=== PATIENT | male | born 1940 | race Caucasian/White ===

== ENCOUNTER → 2022-10-23 | Outpatient (REF) | payer MEDICARE, OTHER, SELFPAY ==
[2022-10-23 10:38] LABS: Hematocrit 33.8 % (40-54); Hemoglobin 11.5 g/dL (13.0-16.5); Mean Corpuscular Hgb 32.3 pg (27.0-32.0); Mean Corpuscular Volume 94.9 fL (80-94); Mean Platelet Vol. 10.1 fl (6.2-12.0); Platelet Count 238 K/mm3 (150-450); RBC Distribution Width CV 13.8 % (11.6-14.6); RBC Distribution Width SD 48.8 fl (35.1-43.9); Red Blood Count 3.56 M/mm3 (4.6-6.2); White Blood Count 8.5 K/mm3 (4.4-11.0)
[2022-10-23 10:57] LABS: Hemoglobin A1c 5.5 % (3.8-5.6)
[2022-10-23 11:00] LABS: ALB/GLOB Ratio 0.7 RATIO (0.9-2.4); AST(SGOT) 26 U/L (15-37); Alanine Aminotransfer ALT/SGPT 16 U/L (16-61); Albumin, Serum 2.6 g/dL (3.2-5.0); Alkaline Phosphatase 136 U/L (45-117); Anion Gap 8 (5-15); BUN 20 mg/dL (7-18); BUN/Creat Ratio 19.2 RATIO (10-20); Calcium,Total 8.4 mg/dL (8.5-10.1); Chloride 97 mmol/L (98-107); Cholesterol 73 mg/dL (200); Creatinine, Serum 1.04 mg/dL (0.70-1.30); EST Glomerular Filtration Rate 72 mL/min (>60); Est Glom Filt Rate - Afr Amer 87 mL/min (>60); Globulin 3.6 g/dL (2.2-4.2); Glucose 73 mg/dL (74-106); High Density Lipoprotein 40 mg/dL; Potassium 3.6 mmol/L (3.5-5.1); Protein, Total 6.2 g/dL (6.4-8.2); Sodium Level 133 mmol/L (136-145); Triglycerides 57 mg/dL; Very Low Density Lipoprotein 11 mg/dL (5-40)
== END ==
LOC: OLS.ACH 04:00
PROVIDERS: Visit Provider Family Medicine
DX: U07.1 COVID-19 (principal); E11.42 Type 2 diabetes mellitus with diabetic polyneuropathy; E78.5 Hyperlipidemia, unspecified; K80.20 Calculus of gallbladder without cholecystitis without obstruction
CPT/HCPCS: 36415; 80053; 80061; 83036; 85027

== ENCOUNTER → 2022-11-29 | Outpatient (REF) | payer MEDICARE, SELFPAY ==
[2022-11-29 20:45] LABS: Hematocrit 39.5 % (40-54); Hemoglobin 13.1 g/dL (13.0-16.5); Mean Corp Hgb Conc 33.2 g/dL (32-36); Mean Corpuscular Hgb 31.4 pg (27.0-32.0); Mean Corpuscular Volume 94.7 fL (80-94); Mean Platelet Vol. 10.4 fl (6.2-12.0); Platelet Count 263 K/mm3 (150-450); RBC Distribution Width CV 14.1 % (11.6-14.6); Red Blood Count 4.17 M/mm3 (4.6-6.2); White Blood Count 5.3 K/mm3 (4.4-11.0)
[2022-11-29 21:10] LABS: ALB/GLOB Ratio 0.7 RATIO (0.9-2.4); AST(SGOT) 48 U/L (15-37); Alanine Aminotransfer ALT/SGPT 38 U/L (16-61); Albumin, Serum 2.8 g/dL (3.2-5.0); Alkaline Phosphatase 216 U/L (45-117); Anion Gap 12 (5-15); BUN 43 mg/dL (7-18); BUN/Creat Ratio 35.2 RATIO (10-20); Calcium,Total 8.1 mg/dL (8.5-10.1); Chloride 97 mmol/L (98-107); Creatinine, Serum 1.22 mg/dL (0.70-1.30); EST Glomerular Filtration Rate 60 mL/min (>60); Est Glom Filt Rate - Afr Amer 73 mL/min (>60); Globulin 3.8 g/dL (2.2-4.2); Glucose 86 mg/dL (74-106); Potassium 3.7 mmol/L (3.5-5.1); Protein, Total 6.6 g/dL (6.4-8.2); Sodium Level 134 mmol/L (136-145)
== END ==
LOC: OLS.ACH 20:00
PROVIDERS: Visit Provider Internal Medicine
DX: K80.46 Calculus of bile duct with acute and chronic cholecystitis without obstruction (principal); R19.7 Diarrhea, unspecified; R11.10 Vomiting, unspecified
CPT/HCPCS: 36415; 80053; 85027

== ENCOUNTER → 2023-01-21 | Outpatient (REF) | payer MEDICARE, OTHER, MEDICAID, SELFPAY | LOC: OLS.ACH 16:10 | PROVIDERS: Visit Provider Internal Medicine | DX: R05.9 Cough, unspecified (principal); R09.81 Nasal congestion | CPT/HCPCS: 87633; 87635; U0003; U0005 ==

== ENCOUNTER → 2023-07-26 | Outpatient (REF) | payer MEDICARE, SELFPAY ==
[2023-07-26 08:14] LABS: Hematocrit 35.4 % (40-54); Hemoglobin 11.9 g/dL (13.0-16.5); Mean Corp Hgb Conc 33.6 g/dL (32-36); Mean Corpuscular Hgb 32.6 pg (27.0-32.0); Mean Platelet Vol. 10.9 fl (6.2-12.0); Platelet Count 136 K/mm3 (150-450); RBC Distribution Width CV 12.5 % (11.6-14.6); RBC Distribution Width SD 44.4 fl (35.1-43.9); Red Blood Count 3.65 M/mm3 (4.6-6.2); White Blood Count 7.2 K/mm3 (4.4-11.0)
[2023-07-26 08:27] LABS: Anion Gap 7 (5-15); BUN 39 mg/dL (7-18); BUN/Creat Ratio 27.5 RATIO (10-20); Calcium,Total 7.9 mg/dL (8.5-10.1); Chloride 106 mmol/L (98-107); Creatinine, Serum 1.42 mg/dL (0.70-1.30); EST Glomerular Filtration Rate 50 mL/min (>60); Est Glom Filt Rate - Afr Amer 61 mL/min (>60); Glucose 96 mg/dL (74-106); Potassium 4.3 mmol/L (3.5-5.1); Sodium Level 138 mmol/L (136-145)
== END ==
LOC: OLS.ACH 05:00
PROVIDERS: Visit Provider Internal Medicine
DX: I74.9 Embolism and thrombosis of unspecified artery (principal)
CPT/HCPCS: 36415; 80048; 85027

== ENCOUNTER → 2023-08-05 | Outpatient (REF) | payer MEDICARE, SELFPAY ==
[2023-08-05 09:44] LABS: Anion Gap 8 (5-15); BUN 41 mg/dL (7-18); BUN/Creat Ratio 31.5 RATIO (10-20); Calcium,Total 8.5 mg/dL (8.5-10.1); Chloride 104 mmol/L (98-107); EST Glomerular Filtration Rate 56 mL/min (>60); Est Glom Filt Rate - Afr Amer 67 mL/min (>60); Glucose 90 mg/dL (74-106); Sodium Level 136 mmol/L (136-145)
== END ==
LOC: OLS.ACH 04:00
PROVIDERS: Referring Provider Internal Medicine; Visit Provider Internal Medicine
DX: I12.9 Hypertensive chronic kidney disease with stage 1 through stage 4 chronic kidney disease, or unspecified chronic kidney disease (principal); N18.9 Chronic kidney disease, unspecified
CPT/HCPCS: 36415; 80048

== ENCOUNTER → 2023-09-06 | Outpatient (REF) | payer MEDICARE, SELFPAY ==
[2023-09-06 08:32] LABS: ALB/GLOB Ratio 1.2 RATIO (0.9-2.4); AST(SGOT) 40 U/L (15-37); Alanine Aminotransfer ALT/SGPT 25 U/L (16-61); Albumin, Serum 3.4 g/dL (3.2-5.0); Alkaline Phosphatase 137 U/L (45-117); Anion Gap 5 (5-15); BUN 43 mg/dL (7-18); BUN/Creat Ratio 28.3 RATIO (10-20); Calcium,Total 7.8 mg/dL (8.5-10.1); Chloride 103 mmol/L (98-107); Creatinine, Serum 1.52 mg/dL (0.70-1.30); EST Glomerular Filtration Rate 47 mL/min (>60); Est Glom Filt Rate - Afr Amer 56 mL/min (>60); Globulin 2.9 g/dL (2.2-4.2); Glucose 86 mg/dL (74-106); Protein, Total 6.3 g/dL (6.4-8.2); Sodium Level 136 mmol/L (136-145)
== END ==
LOC: OLS.ACH 05:00
PROVIDERS: Visit Provider Internal Medicine
DX: I12.9 Hypertensive chronic kidney disease with stage 1 through stage 4 chronic kidney disease, or unspecified chronic kidney disease (principal); N18.9 Chronic kidney disease, unspecified
CPT/HCPCS: 36415; 80053

== ENCOUNTER → 2023-11-04 | Outpatient (REF) | payer MEDICARE, SELFPAY ==
[2023-11-04 10:13] LABS: Absolute Lymphocyte Count 1.16 X10^3/uL (0.83-4.51); Absolute Neutrophil Count 3.1 X10^3/uL (2.0-7.7); Basophil# 0.02 X10^3/uL; Basophil% 0.4 % (0-1); Eosinophil# 0.13 X10^3/uL; Eosinophils% 2.6 % (0-5); Hematocrit 37.4 % (40-54); Hemoglobin 12.3 g/dL (13.0-16.5); Lymphocyte # 1.16 X10^3/ul (0.83-4.51); Lymphocyte % 22.9 % (19-41); Mean Corp Hgb Conc 32.9 g/dL (32-36); Mean Corpuscular Volume 97.4 fL (80-94); Mean Platelet Vol. 10.8 fl (6.2-12.0); Monocyte% 11.9 % (0-10); NRBC Flagged by Analyzer 0 % (0-5); Neutrophil # 3.14 X10^3/uL (2.7-7.7); Platelet Count 122 K/mm3 (150-450); RBC Distribution Width CV 12.9 % (11.6-14.6); RBC Distribution Width SD 45.6 fl (35.1-43.9); Red Blood Count 3.84 M/mm3 (4.6-6.2); White Blood Count 5.1 K/mm3 (4.4-11.0)
[2023-11-04 10:35] LABS: AST(SGOT) 52 U/L (15-37); Alanine Aminotransfer ALT/SGPT 23 U/L (16-61); Albumin, Serum 3.2 g/dL (3.2-5.0); Alkaline Phosphatase 166 U/L (45-117); Anion Gap 7 (5-15); BUN 42 mg/dL (7-18); BUN/Creat Ratio 27.8 RATIO (10-20); Calcium,Total 7.2 mg/dL (8.5-10.1); Chloride 105 mmol/L (98-107); Creatinine, Serum 1.51 mg/dL (0.70-1.30); EST Glomerular Filtration Rate 47 mL/min (>60); Est Glom Filt Rate - Afr Amer 57 mL/min (>60); Globulin 3.1 g/dL (2.2-4.2); Glucose 92 mg/dL (74-106); Potassium 3.7 mmol/L (3.5-5.1); Protein, Total 6.3 g/dL (6.4-8.2); Sodium Level 136 mmol/L (136-145)
== END ==
LOC: OLS.ACH 05:00
PROVIDERS: Visit Provider Internal Medicine
DX: J06.9 Acute upper respiratory infection, unspecified (principal); R06.2 Wheezing
CPT/HCPCS: 36415; 80053; 85025

== ENCOUNTER → 2024-02-12 | Outpatient (REF) | payer MEDICARE, SELFPAY ==
[2024-02-12 09:31] LABS: Hemoglobin A1c 5.7 % (3.8-5.6)
== END ==
LOC: OLS.ACH 05:00
PROVIDERS: Visit Provider Internal Medicine
DX: E11.42 Type 2 diabetes mellitus with diabetic polyneuropathy (principal); E11.22 Type 2 diabetes mellitus with diabetic chronic kidney disease; N18.9 Chronic kidney disease, unspecified
CPT/HCPCS: 36415; 83036

== ENCOUNTER → 2024-03-09 | Outpatient (REF) | payer MEDICARE, MEDICAID, SELFPAY ==
[2024-03-09 10:01] LABS: Hematocrit 40.8 % (40-54); Hemoglobin 13.6 g/dL (13.0-16.5); Mean Corp Hgb Conc 33.3 g/dL (32-36); Mean Corpuscular Hgb 32.3 pg (27.0-32.0); Mean Corpuscular Volume 96.9 fL (80-94); Platelet Count 154 K/mm3 (150-450); RBC Distribution Width CV 12.2 % (11.6-14.6); RBC Distribution Width SD 43.5 fl (35.1-43.9); Red Blood Count 4.21 M/mm3 (4.6-6.2); White Blood Count 7.1 K/mm3 (4.4-11.0)
[2024-03-09 10:31] LABS: ALB/GLOB Ratio 1.1 RATIO (0.9-2.4); AST(SGOT) 32 U/L (15-37); Alanine Aminotransfer ALT/SGPT 20 U/L (16-61); Albumin, Serum 3.5 g/dL (3.2-5.0); Alkaline Phosphatase 116 U/L (45-117); Anion Gap 7 (5-15); BUN 35 mg/dL (7-18); BUN/Creat Ratio 23.5 RATIO (10-20); Chloride 104 mmol/L (98-107); Creatinine, Serum 1.49 mg/dL (0.70-1.30); EST Glomerular Filtration Rate 48 mL/min (>60); Est Glom Filt Rate - Afr Amer 58 mL/min (>60); Globulin 3.1 g/dL (2.2-4.2); Glucose 160 mg/dL (74-106); Potassium 4.4 mmol/L (3.5-5.1); Protein, Total 6.6 g/dL (6.4-8.2); Sodium Level 136 mmol/L (136-145)
== END ==
LOC: OLS.ACH 05:00
PROVIDERS: Visit Provider Internal Medicine
DX: J06.9 Acute upper respiratory infection, unspecified (principal); B95.8 Unspecified staphylococcus as the cause of diseases classified elsewhere; R06.2 Wheezing
CPT/HCPCS: 36415; 80053; 85027

== ENCOUNTER → 2024-04-27 04:00 | Outpatient (REF) | payer MEDICARE, MEDICAID, SELFPAY | LOC: OLS.ACH 04:00 | PROVIDERS: Visit Provider Internal Medicine | DX: E11.51 Type 2 diabetes mellitus with diabetic peripheral angiopathy without gangrene (principal) | CPT/HCPCS: 36415; 83036 ==

== ENCOUNTER 2024-05-14 12:05 | Emergency (ER) | payer MEDICARE, MEDICAID, OTHER, SELFPAY ==
[2024-05-14] VITALS (10 sets, daily range): BP systolic 110–130; BP diastolic 56–66; PULSE 55–71; RESP 19–29; TEMP 36.3–37.3; O2SAT 95–98; BMI 28.8
--- NOTE | 2024-05-14 12:37 | EX.ED.DYSGE1 ---
HPI <HOLLY Franks - Last Filed: 05/14/24 16:24> History of Present Illness Chief Complaint: Shortness of Breath Narrative Narrative: Patient presenting today due to shortness of breath he has had over the past 2 days after being diagnosed with COVID. He is [facility] due to increased shortness of breath, productive cough, and wheezing. The facility placed him on supplemental O2 this morning, he is currently on 2.5 L O2 and oxygen saturation is 98%. He denies any fevers, chills, and chest pain. He has a PMH of CKD, COPD, T2DM, HLD, history of DVT on Eliquis. PFSH <HOLLY Franks - Last Filed: 05/14/24 16:24> PFSH Home Medications ?Medication ?Instructions ?Recorded ?Last Taken ?Type tamsulosin 0.4 mg capsule 0.8 mg (2 x 0.4 mg) PO QHS ##60 12/04/13 05/13/24 Rx acetaminophen 325 mg tablet 650 mg PO Q6H PRN pain 05/14/24 05/14/24 History albuterol 90 mcg-budesonide 80 2 inh inhalation 4X/DAY PRN 05/14/24 Unknown History mcg/actuation HFA aerosol inhaler shortness of breath (Airsupra) aluminum-mag hydroxide-simethicone 20 ml PO Q6H PRN indigestion 05/14/24 Unknown History 200 mg-200 mg-20 mg/5 mL oral susp (Advanced Antacid-Antigas) amlodipine 5 mg tablet 5 mg PO DAILY 05/14/24 05/14/24 History apixaban 5 mg tablet (Eliquis) 5 mg PO BID 05/14/24 05/14/24 History ascorbic acid (vitamin C) 500 mg 500 mg PO DAILY 05/14/24 05/13/24 History capsule aspirin 81 mg tablet,delayed 81 mg PO DAILY 05/14/24 05/14/24 History release benzocaine 15 mg-menthol 2.6 mg 1 lorraine mucous membrane Q2H PRN sore 05/14/24 05/13/24 History lozenges (Cepacol Sore Throat throat (benzocaine-menthol)) bisacodyl 10 mg rectal suppository 10 mg OK DAILY PRN constipation 05/14/24 Unknown History cholecalciferol (vitamin D3) 25 25 mcg PO DAILY 05/14/24 05/14/24 History mcg (1,000 unit) capsule finasteride 5 mg tablet 5 mg PO DAILY 05/14/24 05/14/24 History fluticasone propionate 44 2 puff inhalation BID 05/14/24 05/14/24 History mcg/actuation HFA aerosol inhaler furosemide 20 mg tablet 20 mg PO DAILY 05/14/24 05/14/24 History gabapentin 100 mg capsule 200 mg PO BID PAIN 05/14/24 05/14/24 History gabapentin 400 mg capsule 400 mg PO DAILY 05/14/24 05/13/24 History glucagon 1 mg solution for 1 mg IM Q20M PRN hypoglycemia 05/14/24 Unknown History injection (Glucagon Emergency Kit) labetalol 200 mg tablet 200 mg PO BID 05/14/24 05/14/24 History loperamide 2 mg tablet 2 mg PO Q8H PRN loose stool 05/14/24 Unknown History (Anti-Diarrheal (loperamide)) magnesium hydroxide 400 mg/5 mL 30 ml PO DAILY PRN constipation 05/14/24 Unknown History oral suspension (Milk of Magnesia) melatonin 3 mg tablet 3 mg PO QHS 05/14/24 05/13/24 History melatonin 5 mg tablet 5 mg PO QHS 05/14/24 05/13/24 History menthol 5 % topical gel (Biofreeze 1 ea topical Q12H PRN PAIN 05/14/24 04/28/24 History (menthol)) ondansetron HCl 4 mg tablet 4 mg PO Q8H PRN nausea and vomiting 05/14/24 Unknown History pantoprazole 20 mg tablet,delayed 20 mg PO DAILY 05/14/24 05/14/24 History release potassium chloride 10 mEq 10 meq PO BID 05/14/24 05/14/24 History tablet,extended release prednisone 20 mg tablet 20 mg PO BID 05/14/24 05/14/24 History sennosides 8.6 mg-docusate sodium 1 tab-cap PO DAILY PRN constipation 05/14/24 Unknown History 50 mg tablet (Laxative Stool Softener With Senna) sodium phosphates 19 gram-7 118 ml OK DAILY PRN constipation 05/14/24 Unknown History gram/118 mL enema (Enema) tramadol 50 mg tablet 50 mg PO BID PRN pain 05/14/24 05/14/24 History trazodone 50 mg tablet 25 mg PO QHS 05/14/24 05/13/24 History zinc sulfate 50 mg zinc (220 mg) 50 mg PO DAILY 05/14/24 05/14/24 History tablet Allergy/AdvReac Type Severity Reaction Status Date / Time Sulfa (Sulfonamide Allergy Severe edema Verified 05/14/24 12:05 Antibiotics) Social History Smoking Status: Never smoker ROS <HOLLY Franks - Last Filed: 05/14/24 16:24> ROS ED Constitutional Constitutional ED: Denies chills or fever(s) Cardiovascular Cardiovascular: Denies chest pain or palpitations Respiratory/Chest Respiratory/Chest: Reports cough, dyspnea and wheezing Gastrointestinal Gastrointestinal: Denies abdominal pain, nausea or vomiting Musculoskeletal Musculoskeletal: Denies arthralgias or myalgias Integumentary Denies rash Neurologic Neurologic: Denies weakness EXAM <HOLLY Franks - Last Filed: 05/14/24 16:24> Physical Exam Const Vital Signs: 05/14/24 12:05 05/14/24 12:13 05/14/24 12:24 Temperature 99.1 F 99.1 F Temperature Source Oral Oral Pulse Rate 67 66 Respiratory Rate 22 H 26 H Respiratory Effort Short of Breath Respiratory Pattern Tachypnea Blood Pressure 114/66 114/66 Blood Pressure Mean 82 82 Pulse Ox 97 98 Oxygen Delivery Method Nasal Cannula Nasal Cannula Nasal Cannula Oxygen Flow Rate (L/min) 3 3 3 05/14/24 12:39 05/14/24 12:39 05/14/24 13:11 Temperature 98.4 F Temperature Source Oral Pulse Rate 71 66 Respiratory Rate 20 H 29 H Respiratory Effort Respiratory Pattern Tachypnea Blood Pressure 113/63 Blood Pressure Mean 79 Pulse Ox 97 98 Oxygen Delivery Method Nasal Cannula Nasal Cannula Oxygen Flow Rate (L/min) 2 3 05/14/24 14:00 05/14/24 15:00 05/14/24 15:33 Temperature 98.5 F 97.3 F L Temperature Source Temporal Pulse Rate 62 56 L 63 Respiratory Rate 25 H 19 H 20 H Respiratory Effort Respiratory Pattern Blood Pressure 119/65 111/57 L 128/60 H Blood Pressure Mean 83 75 82 Pulse Ox 96 95 98 Oxygen Delivery Method Nasal Cannula Nasal Cannula Oxygen Flow Rate (L/min) 3 3 05/14/24 16:00 Temperature Temperature Source Pulse Rate 55 L Respiratory Rate 21 H Respiratory Effort Respiratory Pattern Blood Pressure 130/59 H Blood Pressure Mean 82 Pulse Ox 96 Oxygen Delivery Method Nasal Cannula Oxygen Flow Rate (L/min) 3 Positive well nourished, well developed and no apparent distress General Appearance ED: well developed HEENT Reports normocephalic and head/scalp atraumatic Mouth ED: Yes moist mucous membranes normal Eyes PERRL and EOMs intact bilaterally Neck full ROM and supple Chest Wall inspection of chest normal Resp normal respiratory effort and clear to auscultation bilaterally Resp Narrative: Minimal scattered inspiratory wheezes Cardio regular rate and regular rhythm GI soft to palpation, non-tender, non-distended and no masses Back/Spine normal ROM and normal to inspection Extremity normal to inspection and full ROM Neuro oriented x3, CN's II-XII intact bilaterally, moves all extremities, no focal motor deficits and no sensory deficits noted Sensorium / Orientation: awake and alert Psych mental status grossly normal and thought process normal Skin no rashes or lesions noted and no wounds <Dr. Ruben Sam, DO - Last Filed: 05/14/24 15:36> Physical Exam Const Vital Signs: 05/14/24 12:05 05/14/24 12:13 05/14/24 12:24 Temperature 99.1 F 99.1 F Temperature Source Oral Oral Pulse Rate 67 66 Respiratory Rate 22 H 26 H Respiratory Effort Short of Breath Respiratory Pattern Tachypnea Blood Pressure 114/66 114/66 Blood Pressure Mean 82 82 Pulse Ox 97 98 Oxygen Delivery Method Nasal Cannula Nasal Cannula Nasal Cannula Oxygen Flow Rate (L/min) 3 3 3 05/14/24 12:39 05/14/24 12:39 05/14/24 13:11 Temperature 98.4 F Temperature Source Oral Pulse Rate 71 66 Respiratory Rate 20 H 29 H Respiratory Effort Respiratory Pattern Tachypnea Blood Pressure 113/63 Blood Pressure Mean 79 Pulse Ox 97 98 Oxygen Delivery Method Nasal Cannula Nasal Cannula Oxygen Flow Rate (L/min) 2 3 05/14/24 14:00 05/14/24 15:00 05/14/24 15:33 Temperature 98.5 F 97.3 F L Temperature Source Temporal Pulse Rate 62 56 L 63 Respiratory Rate 25 H 19 H 20 H Respiratory Effort Respiratory Pattern Blood Pressure 119/65 111/57 L 128/60 H Blood Pressure Mean 83 75 82 Pulse Ox 96 95 98 Oxygen Delivery Method Nasal Cannula Nasal Cannula Oxygen Flow Rate (L/min) 3 3 05/14/24 16:00 Temperature Temperature Source Pulse Rate 55 L Respiratory Rate 21 H Respiratory Effort Respiratory Pattern Blood Pressure 130/59 H Blood Pressure Mean 82 Pulse Ox 96 Oxygen Delivery Method Nasal Cannula Oxygen Flow Rate (L/min) 3 [facility] <HOLLY Franks - Last Filed: 05/14/24 16:24> [facility] Narrative Medical decision making narrative: Patient presenting due to shortness of breath, cough, and wheezing. He is on Eliquis, low suspicion for PE. Patient given breathing treatments, basic labs will be obtained as well as a chest x-ray. [facility] him on supplemental O2 today, he is now almost at baseline. He is remaining above 95% on 2.5 L here. He is resting comfortably, is nontoxic-appearing, and in no acute distress. Chest x-ray shows patchy airspace opacifications consistent with COVID-19. Labs were obtained, kidneys appear to be near baseline. Platelets 131, this has been low in the past. The nursing facility does have the capabilities to keep him on supplemental O2, they have also started him on prednisone. At this point I do not think that patient requires hospitalization, he will be discharged back to his nursing facility in stable condition. Lab Data Lab results narrative: BUN 36, creatinine 1.67, platelet count 131 Labs: Laboratory Results - last 24 hr 05/14/24 12:50 WBC 10.5 RBC 4.33 L Hgb 14.1 Hct 40.8 MCV 94.2 H MCH 32.6 H MCHC 34.6 RDW Std Deviation 43.1 RDW Coeff of Gabby 12.6 Plt Count 131 L MPV 9.9 Immature Gran % (Auto) 0.400 Neut % (Auto) 90.9 H Lymph % (Auto) 4.4 L [place] % (Auto) 4.0 Eos % (Auto) 0.0 Baso % (Auto) 0.3 Absolute Neuts (auto) 9.6 H Absolute Lymphs (auto) 0.46 L Nucleated RBC % 0 Sodium 137 Potassium 4.0 Chloride 103 Carbon Dioxide 25.0 Anion Gap 9 BUN 36 H Creatinine 1.67 H Estim Creat Clear Calc 34.91 Est GFR (MDRD) Af Amer 50 L Est GFR (MDRD) Non-Af 42 L BUN/Creatinine Ratio 21.6 H Glucose 129 H Calcium 8.7 Total Bilirubin 0.80 Direct Bilirubin 0.26 AST 47 H ALT 23 Alkaline Phosphatase 125 H Total Protein 7.0 Albumin 3.7 Globulin 3.3 Radiography Diagnostic Testing: Clinical Impression(s) from Imaging Studies Chest X-Ray 05/14/24 12:58 IMPRESSION: Patchy airspace opacifications in both lower lung jackson without effusions. Follow-up recommended to assure resolution Electronically Signed: Lavon Salguero MD at 13:12 EDT Reading Location ID and State: [facility] / [place] , Service support , EKG Initial EKG: Comments: 67 bpm, sinus rhythm with PACs, no ST elevation, reviewed and interpreted by attending ED physician <Dr. Ruben Sam, DO - Last Filed: 05/14/24 15:36> MDM History & Record Review Discussion w/independent historian: EMS personnel, Patient and Other (SNF) Lab Data Attestation: I reviewed the patient's lab results. Labs: Laboratory Results - last 24 hr 05/14/24 12:50 WBC 10.5 RBC 4.33 L Hgb 14.1 Hct 40.8 MCV 94.2 H MCH 32.6 H MCHC 34.6 RDW Std Deviation 43.1 RDW Coeff of Gabby 12.6 Plt Count 131 L MPV 9.9 Immature Gran % (Auto) 0.400 Neut % (Auto) 90.9 H Lymph % (Auto) 4.4 L [place] % (Auto) 4.0 Eos % (Auto) 0.0 Baso % (Auto) 0.3 Absolute Neuts (auto) 9.6 H Absolute Lymphs (auto) 0.46 L Nucleated RBC % 0 Sodium 137 Potassium 4.0 Chloride 103 Carbon Dioxide 25.0 Anion Gap 9 BUN 36 H Creatinine 1.67 H Estim Creat Clear Calc 34.91 Est GFR (MDRD) Af Amer 50 L Est GFR (MDRD) Non-Af 42 L BUN/Creatinine Ratio 21.6 H Glucose 129 H Calcium 8.7 Total Bilirubin 0.80 Direct Bilirubin 0.26 AST 47 H ALT 23 Alkaline Phosphatase 125 H Total Protein 7.0 Albumin 3.7 Globulin 3.3 Radiography Diagnostic Testing: Clinical Impression(s) from Imaging Studies Chest X-Ray 05/14/24 12:58 IMPRESSION: Patchy airspace opacifications in both lower lung jackson without effusions. Follow-up recommended to assure resolution Electronically Signed: Lavon Salguero MD at 13:12 EDT Reading Location ID and State: [facility] / [place] , Service support , Treatment and Re-Evaluation :: I have personally performed a face to face assessment of the patient and have reviewed the FARAZ Note. I performed a substantive portion of the visit including all aspects of the following. My cortes findings include: History is 83-year-old male [facility] history of COPD on apixaban recently diagnosed with COVID-19. He was started on prednisone today. There was some question whether or not he is chronically on home oxygen but per penitentiary they just placed him on something. The patient notes cough. He denies any current pain. Exam is patient has upper airway congestion. Lung sounds show some few scattered wheezes. He is alert orientated to self and place not time. Medical Decison Making my independent interpretation the chest x-ray is patchy interstitial infiltrates consistent with the COVID-19 diagnosis. There is no significant effusion. Patient is not in any respiratory distress. He is on 3 L nasal cannula. Labs show some slight elevation in BUN and creatinine which may actually be helpful in the setting of COVID-19 with pulmonary findings. I do not believe we need to workup pulmonary embolism as he is anticoagulated. EKG is nonischemic. At this point patient be [facility]. Would recommend aerosols continued prednisone. Patient is with other COVID-19 patient's pulmonary findings may progress to require hospitalization at this time, seeing evidence that is needed currently. Discharge Plan Triage Chief Complaint: Shortness of Breath ED Midlevel Provider: Dia Jones ED Provider: Ruben Sam Dx/Rx/DC Orders Clinical Impression: COVID-19, Thrombocytopenia, Chronic anticoagulation Instructions: Coronavirus Disease 2019 (COVID-19): Caring for Yourself or Others Prescriptions: No Action tamsulosin 0.4 MG capsule 0.8 mg PO QHS Qty: 60 0RF acetaminophen 325 mg tablet 650 mg PO Q6H PRN (Reason: pain) Airsupra 90-80 mcg/actuation HFA aerosol inhaler 2 inh inhalation 4X/DAY PRN (Reason: shortness of breath) Rx Instructions: COVID + USE FOR 7 DAYS FROM 05/14/24-05/21/24 amlodipine 5 mg tablet 5 mg PO DAILY aspirin 81 mg tablet,delayed release (DR/EC) 81 mg PO DAILY Eliquis 5 mg tablet 5 mg PO BID Biofreeze (menthol) 5 % gel 1 ea topical Q12H PRN (Reason: PAIN) Rx Instructions: APPLY TO ARMS, SHOULDERS, AND BACK bisacodyl 10 mg suppository 10 mg OK DAILY PRN (Reason: constipation) Enema 19-7 gram/118 mL enema 118 ml OK DAILY PRN (Reason: constipation) fluticasone propionate 44 mcg/actuation HFA aerosol inhaler 2 puff inhalation BID Rx Instructions: COVID + USE FOR 14 DAYS WITH SPACER. 05/13/24-05/27/24. RINSE AND SPIT AFTER USE. finasteride 5 mg tablet 5 mg PO DAILY furosemide 20 mg tablet 20 mg PO DAILY Glucagon Emergency Kit (human) 1 mg recon soln 1 mg IM Q20M PRN (Reason: hypoglycemia) Rx Instructions: until target blood sugar attained labetalol 200 mg tablet 200 mg PO BID loperamide [Anti-Diarrheal (loperamide)] 2 mg tablet 2 mg PO Q8H PRN (Reason: loose stool) melatonin 3 mg tablet 3 mg PO QHS Rx Instructions: GIVE WITH 5MG TABLET TO EQUAL DOSE OF 8MG melatonin 5 mg tablet 5 mg PO QHS Rx Instructions: TAKE WITH 3MG TABLET TO EQUAL 8MG DOSE. magnesium hydroxide [Milk of Magnesia] 400 mg/5 mL suspension 30 ml PO DAILY PRN (Reason: constipation) alum-mag hydroxide-simeth [Advanced Antacid-Antigas] 200-200-20 mg/5 mL suspension 20 ml PO Q6H PRN (Reason: indigestion) gabapentin 100 mg capsule 200 mg PO BID gabapentin 400 mg capsule 400 mg PO DAILY potassium chloride 10 mEq tablet extended release 10 meq PO BID pantoprazole 20 mg tablet,delayed release (DR/EC) 20 mg PO DAILY prednisone 20 mg tablet 20 mg PO BID Rx Instructions: START- 05/14/24 END- 05/19/24 tramadol 50 mg tablet 50 mg PO BID PRN (Reason: pain) trazodone 50 mg tablet 25 mg PO QHS sennosides-docusate sodium [Lax Stool Softener With Senna] 8.6-50 mg tablet 1 tab-cap PO DAILY PRN (Reason: constipation) Cepacol Sore Throat (la nena-men) 15-2.6 mg lozenge 1 lorraine mucous membrane Q2H PRN (Reason: sore throat) ondansetron HCl 4 mg tablet 4 mg PO Q8H PRN (Reason: nausea and vomiting) ascorbic acid (vitamin C) 500 mg capsule 500 mg PO DAILY Rx Instructions: FOR COVID + START- 05/14/24 END-06/13/24 cholecalciferol (vitamin D3) 25 mcg (1,000 unit) capsule 25 mcg PO DAILY Rx Instructions: FOR COVID + START- 05/14/24 END-06/13/24 zinc sulfate 50 mg zinc (220 mg) tablet 50 mg PO DAILY Rx Instructions: FOR COVID + START- 05/14/24 END-06/13/24 Primary Care Provider: Bonny Ceron,Josh Referrals: [facility] Doctor,Out of [Non-Staff] - Activity Restrictions/Additional Instructions: Please follow-up with your PCP and return for any worsening of your symptoms. Print Language: Urdu Disposition Disposition: Home, Self Care
[2024-05-14] MEDS: Ipratropium/Albuterol Sulfate 3 ML AMPUL.NEB INHALATION (12:38)
[2024-05-14] MEDS: Albuterol 2.5 MG/3 ML VIAL.NEB. INHALATION (12:38)
--- NOTE | 2024-05-14 12:58 | RAD_ITS ---
STUDY: X-RAY CHEST REASON FOR EXAM: Male, 83 years old. Fever and cough, Covid + TECHNIQUE: PA and 2 lateral views of the chest. COMPARISON: None. FINDINGS: EKG leads overlie the chest Lungs are expanded with patchy airspace opacifications in both lower lung jackson without effusions. Follow-up recommended to assure resolution. Normal size heart. Normal mediastinum and alberto. Normal visualized pulmonary arteries. Normal visualized aortic arch and descending thoracic aorta. There are diffuse degenerative changes of the visualized thoracic spine. Normal visualized ribs, clavicles, and shoulders. There is no demonstrated abnormality of the visualized soft tissue structures of the upper abdomen. RAD/Chest PA and Lateral IMPRESSION: Patchy airspace opacifications in both lower lung jackson without effusions. Follow-up recommended to assure resolution Electronically Signed: Lavon Salguero MD at 13:12 EDT ,
[2024-05-14 13:02] LABS: Absolute Lymphocyte Count 0.46 X10^3/uL (0.83-4.51); Absolute Neutrophil Count 9.6 X10^3/uL (2.0-7.7); Basophil# 0.03 X10^3/uL; Basophil% 0.3 % (0-1); Hematocrit 40.8 % (40-54); Hemoglobin 14.1 g/dL (13.0-16.5); Lymphocyte # 0.46 X10^3/ul (0.83-4.51); Lymphocyte % 4.4 % (19-41); Mean Corp Hgb Conc 34.6 g/dL (32-36); Mean Corpuscular Hgb 32.6 pg (27.0-32.0); Mean Corpuscular Volume 94.2 fL (80-94); Mean Platelet Vol. 9.9 fl (6.2-12.0); Monocyte# 0.42 X10^3/uL; NRBC Flagged by Analyzer 0 % (0-5); Neutrophil # 9.58 X10^3/uL (2.7-7.7); Neutrophil % 90.9 % (47-70); POSITIVE DIFFERENTIAL YES; Platelet Count 131 K/mm3 (150-450); RBC Distribution Width CV 12.6 % (11.6-14.6); RBC Distribution Width SD 43.1 fl (35.1-43.9); Red Blood Count 4.33 M/mm3 (4.6-6.2); White Blood Count 10.5 K/mm3 (4.4-11.0)
[2024-05-14 13:42] LABS: AST(SGOT) 47 U/L (15-37); Alanine Aminotransfer ALT/SGPT 23 U/L (16-61); Albumin, Serum 3.7 g/dL (3.2-5.0); Alkaline Phosphatase 125 U/L (45-117); Anion Gap 9 (5-15); BUN 36 mg/dL (7-18); BUN/Creat Ratio 21.6 RATIO (10-20); Bilirubin, Direct 0.26 mg/dL (0.00-0.30); Calcium,Total 8.7 mg/dL (8.5-10.1); Chloride 103 mmol/L (98-107); Creatinine, Serum 1.67 mg/dL (0.70-1.30); EST Glomerular Filtration Rate 42 mL/min (>60); Est Glom Filt Rate - Afr Amer 50 mL/min (>60); Estimated Creatinine Clearance 34.91 ml/min; Globulin 3.3 g/dL (2.2-4.2); Glucose 129 mg/dL (74-106); Sodium Level 137 mmol/L (136-145)
--- NOTE | 2024-05-14 13:48 | EKG12_ITS ---
Test Reason : SOB Blood Pressure : / mmHG Vent. Rate : 067 BPM Atrial Rate : 067 BPM P-R Int : 186 ms QRS Dur : 090 ms QT Int : 410 ms P-R-T Axes : 023 019 003 degrees QTc Int : 433 ms Sinus rhythm with Premature atrial complexes with Aberrant conduction Low voltage QRS Borderline ECG Confirmed by FER VALLE, JAQUELINE ([id number]), associate entertainment editor MELISSA LAURA ([id number]) on 05/18/2024 11:03:42 AM Referred By: Confirmed By:JAQUELINE MONROE MD
--- NOTE | 2024-05-14 13:56 | NURSING ---
NO OLD EKGS
--- NOTE | 2024-05-14 15:39 | NURSING ---
CALLED [facility], ETA IS 2 TO 3 HRS
== END 2024-05-14 17:19 | disposition home or self-care (01) ==
PROVIDERS: Emergency Provider Emergency Medicine; PCP Internal Medicine; Visit Provider Emergency Medicine
DX: U07.1 COVID-19 (principal); J44.9 Chronic obstructive pulmonary disease, unspecified; E11.22 Type 2 diabetes mellitus with diabetic chronic kidney disease; N18.9 Chronic kidney disease, unspecified; D69.6 Thrombocytopenia, unspecified; Z79.899 Other long term (current) drug therapy; Z79.51 Long term (current) use of inhaled steroids; Z79.01 Long term (current) use of anticoagulants
CPT/HCPCS: 71046; 80048; 80076; 85025; 93005; 94640; 99283

== ENCOUNTER → 2024-07-20 | Outpatient (REF) | payer MEDICARE, MEDICAID, SELFPAY | LOC: OLS.ACH 05:00 | PROVIDERS: PCP Internal Medicine; Visit Provider Internal Medicine | DX: E11.51 Type 2 diabetes mellitus with diabetic peripheral angiopathy without gangrene (principal) | CPT/HCPCS: 36415; 83036 ==

== ENCOUNTER → 2024-07-28 | Outpatient (REF) | payer MEDICARE, MEDICAID, SELFPAY ==
[2024-07-28 10:01] LABS: Creatinine, Serum 1.39 mg/dL (0.70-1.30); EST Glomerular Filtration Rate 52 mL/min (>60); Est Glom Filt Rate - Afr Amer 62 mL/min (>60)
== END ==
LOC: OLS.ACH 05:00
PROVIDERS: PCP Internal Medicine; Visit Provider Internal Medicine
DX: N18.30 Chronic kidney disease, stage 3 unspecified (principal)
CPT/HCPCS: 36415; 82565

== ENCOUNTER → 2024-09-04 | Outpatient (REF) | payer MEDICARE, MEDICAID, OTHER, SELFPAY ==
[2024-09-04 08:13] LABS: Hematocrit 37.8 % (40-54); Hemoglobin 12.9 g/dL (13.0-16.5); Mean Corp Hgb Conc 34.1 g/dL (32-36); Mean Corpuscular Hgb 32.5 pg (27.0-32.0); Mean Corpuscular Volume 95.2 fL (80-94); Mean Platelet Vol. 10.8 fl (6.2-12.0); Platelet Count 121 K/mm3 (150-450); RBC Distribution Width CV 12.1 % (11.6-14.6); RBC Distribution Width SD 42.4 fl (35.1-43.9); Red Blood Count 3.97 M/mm3 (4.6-6.2); White Blood Count 7.8 K/mm3 (4.4-11.0)
[2024-09-04 08:31] LABS: ALB/GLOB Ratio 1.2 RATIO (0.9-2.4); AST(SGOT) 35 U/L (15-37); Alanine Aminotransfer ALT/SGPT 24 U/L (16-61); Albumin, Serum 3.3 g/dL (3.2-5.0); Alkaline Phosphatase 127 U/L (45-117); Anion Gap 6 (5-15); BUN 36 mg/dL (7-18); BUN/Creat Ratio 24.3 RATIO (10-20); Calcium,Total 7.8 mg/dL (8.5-10.1); Chloride 103 mmol/L (98-107); Creatinine, Serum 1.48 mg/dL (0.70-1.30); EST Glomerular Filtration Rate 48 mL/min (>60); Est Glom Filt Rate - Afr Amer 58 mL/min (>60); Globulin 2.8 g/dL (2.2-4.2); Glucose 116 mg/dL (74-106); Potassium 3.8 mmol/L (3.5-5.1); Protein, Total 6.1 g/dL (6.4-8.2); Sodium Level 136 mmol/L (136-145)
== END ==
LOC: OLS.ACH 05:00
PROVIDERS: PCP Internal Medicine; Visit Provider Internal Medicine
DX: I12.9 Hypertensive chronic kidney disease with stage 1 through stage 4 chronic kidney disease, or unspecified chronic kidney disease (principal); N18.9 Chronic kidney disease, unspecified
CPT/HCPCS: 36415; 80053; 85027

== ENCOUNTER → 2024-10-12 | Outpatient (REF) | payer MEDICARE, MEDICAID, OTHER, SELFPAY ==
[2024-10-12 09:16] LABS: Hemoglobin A1c 6.6 % (3.8-5.6)
== END ==
LOC: OLS.ACH 05:00
PROVIDERS: PCP Internal Medicine; Visit Provider Internal Medicine
DX: E11.51 Type 2 diabetes mellitus with diabetic peripheral angiopathy without gangrene (principal)
CPT/HCPCS: 36415; 83036

== ENCOUNTER → 2025-01-04 | Outpatient (REF) | payer MEDICARE, MEDICAID, OTHER, SELFPAY ==
[2025-01-04 09:08] LABS: Hemoglobin A1c 7.2 % (<=5.6)
== END ==
LOC: OLS.ACH 05:00
PROVIDERS: PCP Internal Medicine; Visit Provider Internal Medicine
DX: E11.51 Type 2 diabetes mellitus with diabetic peripheral angiopathy without gangrene (principal)
CPT/HCPCS: 36415; 83036

== ENCOUNTER → 2025-02-02 | Outpatient (REF) | payer MEDICARE, MEDICAID, OTHER, SELFPAY ==
[2025-02-02 08:42] LABS: Absolute Lymphocyte Count 2.13 X10^3/uL (0.83-4.51); Absolute Neutrophil Count 3.9 X10^3/uL (2.0-7.7); Basophil# 0.04 X10^3/uL; Basophil% 0.6 % (0-1); Eosinophil# 0.15 X10^3/uL; Eosinophils% 2.2 % (0-5); Hematocrit 38.3 % (40-54); Hemoglobin 13.6 g/dL (13.0-16.5); Lymphocyte # 2.13 X10^3/ul (0.83-4.51); Mean Corp Hgb Conc 35.5 g/dL (32-36); Mean Corpuscular Hgb 33.8 pg (27.0-32.0); Mean Corpuscular Volume 95.3 fL (80-94); Mean Platelet Vol. 11.2 fl (6.2-12.0); Monocyte# 0.57 X10^3/uL; Monocyte% 8.3 % (0-10); NRBC Flagged by Analyzer 0 % (0-5); Neutrophil # 3.94 X10^3/uL (2.7-7.7); Neutrophil % 57.5 % (47-70); Platelet Count 121 K/mm3 (150-450); RBC Distribution Width CV 12.6 % (11.6-14.6); RBC Distribution Width SD 44.2 fl (35.1-43.9); Red Blood Count 4.02 M/mm3 (4.6-6.2); White Blood Count 6.9 K/mm3 (4.4-11.0)
[2025-02-02 09:17] LABS: Ammonia 34.5 umol/L (16-60)
[2025-02-02 09:19] LABS: Anion Gap 13 (5-15); BUN 33 mg/dL (4-19); BUN/Creat Ratio 22.4 RATIO (10-20); Calcium,Total 8.6 mg/dL (7.6-11.0); Chloride 99 mmol/L (98-108); Creatinine, Serum 1.48 mg/dL (0.70-1.20); EST Glomerular Filtration Rate 46 (>60); Glucose 132 mg/dL (70-99); Potassium 3.8 mmol/L (3.3-5.1); Sodium Level 135 mmol/L (133-145)
== END ==
LOC: OLS.ACH 04:00
PROVIDERS: PCP Internal Medicine; Referring Provider Internal Medicine; Visit Provider Internal Medicine
DX: E11.51 Type 2 diabetes mellitus with diabetic peripheral angiopathy without gangrene (principal); E43 Unspecified severe protein-calorie malnutrition; E78.5 Hyperlipidemia, unspecified
CPT/HCPCS: 36415; 80048; 82140; 85025